=== PATIENT | male | born 1990 | race Hispanic/Latino ===

== ENCOUNTER 2020-07-15 13:30 | Emergency (ER) | payer OTHER ==
[2020-07-15] MEDS ORDERED: FAMOTIDINE 20MG TAB 20 MG TAB ONE (14:22)
[2020-07-15] MEDS ORDERED: DiphenhydrAMINE HCL 50 MG/ML VIAL ONE (14:23)
[2020-07-15] MEDS ORDERED: ACETAMINOPHEN 325 MG TAB ONE (14:23)
[2020-07-15] MEDS ORDERED: METHYLPREDNISOLONE SOD SUCC 125MG/2ML VIAL ONE (14:23)
== END 2020-07-15 14:37 | disposition home or self-care (01) ==
LOC: EDH 13:30
DX: L50.9 Urticaria, unspecified (principal); Z72.0 Tobacco use
CPT/HCPCS: 96372 ×2; 99284; J1200; J2930